=== PATIENT | female | born 1945 | race Caucasian/White ===

== ENCOUNTER 2017-02-21 09:46 | Outpatient (CLI) | payer MEDICARE ==
[2017-02-21 10:10] LABS: Hemoglobin 13.5 g/dL (12.0-16.0); Mean Corpuscular HGB CONC 32.2 g/dL (32.0-36.0); Mean Corpuscular Hemoglobin 30.9 pg (27.0-31.0); Mean Platelet Volume 10.8 fL (7.4-10.4); Platelet Count 231 thou/uL (130-400); RBC Distribution Width 15.7 % (11.5-14.5); Red Blood Cell (RBC) Count 4.35 mill/uL (4.20-5.40); White Blood Cell (WBC) Count 6.3 thou/uL (4.8-10.8)
[2017-02-21 10:37] LABS: ALT (SGPT) 9 U/L (0-55); AST (SGOT) 12 U/L (5-34); Albumin 3.5 g/dL (3.4-4.8); Alkaline Phosphatase 51 U/L (40-150); Anion Gap 12 mmol/L (10-20); BUN (Urea Nitrogen) 7 mg/dL (9.8-20.1); Bilirubin, Total 0.3 mg/dL (0.2-1.2); Calc. Creatinine Clearance 0 mL/min (70-130); Calcium 9.1 mg/dL (7.8-10.44); Carbon Dioxide 22 mmol/L (23-31); Cardiac Risk 2.5 (Less than 4.5); Chloride 105 mmol/L (98-107); Cholesterol 191 mg/dL (< 200 Desired); Estimated GFR-MDRD 75; Globulin 2.7 g/dL (2.4-3.5); Glucose 86 mg/dL (80-115); HDL Cholesterol 76 mg/dL (>60 Neg Risk); LDL Cholesterol, Calculated 103 mg/dL; Potassium 4.4 mmol/L (3.5-5.1); Protein, Total 6.2 g/dL (5.8-8.1); Sodium 135 mmol/L (136-145); Triglycerides 61 mg/dL (Less than 150)
== END 2017-02-21 09:47 | disposition home or self-care (01) ==
LOC: MADLAB 09:46
PROVIDERS: ATTEND Psychiatry & Neurology Psychiatry
DX: E78.2 Mixed hyperlipidemia (principal); F31.75 Bipolar disorder, in partial remission, most recent episode depressed; D64.9 Anemia, unspecified; Z79.899 Other long term (current) drug therapy
CPT/HCPCS: 36415; 80053; 80061; 80164; 85027

== ENCOUNTER 2019-02-03 08:53 | Emergency (ER) | payer MEDICARE ==
[~2019-02-03 08:53] MED LIST: Sodium Chloride 0.9% 1,000 ML BAG ONE
[2019-02-03] MEDS ORDERED: Ondansetron PF 4 MG/2 ML Vial ONE (09:05)
[2019-02-03] MEDS ORDERED: Pantoprazole 40 MG VIAL ONE (09:05)
[2019-02-03 09:28] LABS: INR-International Normal Ratio 1.2; PTT 24.9 SEC (22.9-36.1)
[2019-02-03 09:37] LABS: ALT (SGPT) 155 U/L (8-55); AST (SGOT) 112 U/L (5-34); Albumin 3.2 g/dL (3.4-4.8); Alkaline Phosphatase 107 U/L (40-150); Anion Gap 22 mmol/L (10-20); BUN (Urea Nitrogen) 26 mg/dL (9.8-20.1); Bilirubin, Total 0.3 mg/dL (0.2-1.2); Calc. Creatinine Clearance 0 mL/min (70-130); Calcium 10.4 mg/dL (7.8-10.44); Carbon Dioxide 10 mmol/L (23-31); Chloride 106 mmol/L (98-107); Estimated GFR-MDRD 45; Globulin 2.7 g/dL (2.4-3.5); Glucose 202 mg/dL (83-110); Potassium 4.4 mmol/L (3.5-5.1); Protein, Total 5.9 g/dL (6.0-8.3); Sodium 134 mmol/L (136-145)
[2019-02-03 09:47] LABS: %Basophils 0.7 % (0.0-1.0); %Eosinophils 0.2 % (0.0-10.0); %Lymphocytes 21.3 % (21.0-51.0); %Monocytes 4.4 % (0.0-10.0); %Neutrophils 73.4 % (42.0-75.0); Hemoglobin 11.5 g/dL (12.0-16.0); Mean Corpuscular HGB CONC 32.1 g/dL (32.0-36.0); Mean Corpuscular Hemoglobin 33.6 pg (27.0-31.0); Mean Platelet Volume 8.4 fL (7.4-10.4); Platelet Count 333 thou/uL (130-400); RBC Distribution Width 15.9 % (11.5-14.5); Red Blood Cell (RBC) Count 3.41 mill/uL (4.20-5.40); White Blood Cell (WBC) Count 13.5 thou/uL (4.8-10.8)
[2019-02-03 09:48] LABS: #Basophils 0.1 thou/uL (0.0-0.2); #Monocytes 0.6 thou/uL (0.11-0.59); #Neutrophils 9.9 thou/uL (1.40-6.50); MDiff Complete? YES
[2019-02-03 09:49] LABS: Anisocytosis SLIGHT = 6-15 cells (100X) (0-5/hpf); Macrocytosis SLIGHT = 6-15 cells (100X) (0-5/hpf)
[2019-02-03 09:50] LABS: Platelet Morphology Comment Appears Adequate
--- NOTE | 2019-02-03 10:55 | CT ---
FCT abdomen noncontrast CT pelvis noncontrast: (Urolithiasis protocol) DATE: 02/03/2019 HISTORY: 73-year-old female with nausea, vomiting, diarrhea, and abdominal pain. COMPARISON: 02/16/2016 CT with and without contrast TECHNIQUE: IV injection of iodinated contrast media: None Oral contrast media: None FINDINGS: Other than for urolithiasis, the lack of IV and oral contrast limits the evaluation. Again noted is the calculus at a left renal lower pole calyx, currently measuring 9 x 6 x 7 mm. Previ ously demonstrated tiny calculus at left renal upper pole is no longer present. No calculi in right k [place]ney. No hydronephrosis. No calculus in the urinary bladder or ureters. Normal, thin cowart of the ur inary bladder. Fundoplication at the esophagogastric junction. No hepatosplenomegaly. No abdominal ao rtic aneurysm. No gross pancreatic abnormality. No small bowel dilation. No signs of colonic divertic ulitis. No ascites or pneumoperitoneum. Distended gallbladder without pericholecystic edema. Benign c oarse calcifications in spleen. Unchanged. IMPRESSION: 1) no acute findings. 2) urolithiasis consisting of a single 9 mm left renal calculus. 3) status post fundoplication
[2019-02-03] MEDS ORDERED: Prochlorperazine 10 MG/2 ML VIAL ONE (11:35)
== END 2019-02-03 13:05 | disposition short-term general hospital (02) ==
LOC: MADERS 08:53
DX: K92.2 Gastrointestinal hemorrhage, unspecified (principal); K75.9 Inflammatory liver disease, unspecified; I95.9 Hypotension, unspecified; N18.1 Chronic kidney disease, stage 1; F31.9 Bipolar disorder, unspecified; Z79.899 Other long term (current) drug therapy
CPT/HCPCS: 74176; 80053; 82274; 83605; 84484; 85025; 85610; 85730; 86850; 86900; 86901; 93005; 96361; 96374; 96375; 99292; C9113; J0780; J2405; J7050

== ENCOUNTER 2024-09-06 14:04 | Emergency (ER) | payer MEDICARE ==
[~2024-09-06 14:04] MED LIST changes: +Iopamidol 370 76% 100 ML VIAL ONE; -Sodium Chloride 0.9% 1,000 ML BAG ONE; +Sodium Chloride 0.9% 100 ML BAG ONE
[2024-09-06 15:11] LABS: ALT (SGPT) 17 U/L (8-55); AST (SGOT) 25 U/L (5-34); Albumin 1.9 g/dL (3.4-4.8); Alkaline Phosphatase 180 U/L (40-110); Anion Gap 14 mmol/L (10-20); BUN (Urea Nitrogen) 40 mg/dL (9.8-20.1); Bilirubin, Total 0.5 mg/dL (0.2-1.2); Calc. Creatinine Clearance 0 mL/min (70-130); Calcium 8.9 mg/dL (7.8-10.44); Carbon Dioxide 26 mmol/L (23-31); Chloride 100 mmol/L (98-107); Estimated GFR 45; Globulin 4.3 g/dL (2.4-3.5); Glucose 105 mg/dL (83-110); Lipase 30 U/L (8-78); Potassium 4.4 mmol/L (3.5-5.1); Protein, Total 6.2 g/dL (5.8-8.1); Sodium 136 mmol/L (136-145)
[2024-09-06 15:14] LABS: Base Excess-Venous 4.7 mmol/L (-2.0 to 3.0); CO2 Tension (PvCO2) 60.4 mmHg (42.0-51.0); Calcium, Ionized 1.23 mmol/L (1.15-1.33); Chloride 100 mmol/L (98-107); Hemoglobin - Calc 18.3 g/dL (12.0-16.0); Potassium 4.6 mmol/L (3.5-5.1); Sodium 139 mmol/L (138-145); T. Carbon Dioxide 34.8 mmol/L (22.0-28.0); vO2 Saturation-calc 98.9 % (60.0-85.0)
[2024-09-06 15:16] LABS: Anisocytosis SLIGHT = 6-15 cells (100X) (0-5/hpf); Band 17 % (5-11); Eosinophils 2 % (0-10); Hematocrit 48.9 % (36.0-47.0); Hemoglobin 14.5 g/dL (12.0-16.0); Hypochromia SLIGHT = 6-15 cells (100X) (0-5/hpf); Lymphocytes 8 % (21-51); MDiff Complete? YES; Macrocytosis SLIGHT = 6-15 cells (100X) (0-5/hpf); Mean Corpuscular HGB CONC 29.7 g/dL (32.0-36.0); Mean Corpuscular Hemoglobin 30.3 pg (27.0-31.0); Mean Platelet Volume 9.2 fL (7.4-10.4); Monocytes 9 % (0-10); Neutrophil 62 % (42-75); Platelet Adequacy Comment Appears Adequate; Platelet Count 195 10x3/uL (130-400); RBC Distribution Width 17.5 % (11.5-14.5); Red Blood Cell (RBC) Count 4.79 mill/uL (4.20-5.40); White Blood Cell (WBC) Count 12.5 10x3/uL (4.8-10.8)
[2024-09-06 15:18] LABS: Critical Call Chem Troponin I NUR.OREST1@1518
[2024-09-06 15:19] LABS: Troponin I 0.697 ng/mL (< 0.028)
[2024-09-06] MEDS ORDERED: cefTRIAXone (ROCEPHIN) 1 GM VIAL ONE (16:32)
[2024-09-06] MEDS ORDERED: fentaNYL 50 mcg/mL 1 mL Vial ONE (17:03)
[2024-09-06] MEDS ORDERED: Sodium Chloride 0.9% 1,000 ML ONE (17:03)
[2024-09-06 17:04] LABS: Prothrombin Time 13.4 sec (12.0-14.7)
[2024-09-06 17:05] LABS: PTT 31.9 sec (22.9-36.1)
== END 2024-09-06 17:40 | disposition short-term general hospital (02) ==
LOC: MADERS 14:04
DX: I26.99 Other pulmonary embolism without acute cor pulmonale (principal); Z55.6 Problems related to health literacy
CPT/HCPCS: 71045; 71275; 74177; 80053; 82330; 82435; 82803; 83605; 83690; 83880; 84132; 84295; 84484; 85014; 85025; 85610; 85730; 87040; 87077; 87149 ×2; 87186; J0696; J3010; J7030; Q9967; 36415; 96361; 96374; 96375

== ENCOUNTER 2024-09-18 10:39 | Inpatient (IN) | payer MEDICARE ==
[2024-09-18 14:14] VITALS: BMI 35.9
[2024-09-18] MEDS: cefTRIAXone\\ROCEPHIN 2 GM in Sodium Chloride 0.9% 100 ML IVPB SCH (19:00)
[2024-09-18] MEDS: Brimonidine Tartrate 0.2% Ophth Soln 5 ml Bottle EA EYE SCH (20:12)
[2024-09-18] MEDS: clonazePAM 0.5 MG TAB PO SCH (20:12)
[2024-09-18] MEDS: Latanoprost 0.005% Ophth Soln 2.5 ml Bottle EA EYE SCH (20:12)
[2024-09-18] MEDS: HYDROcodone/Acetaminophen 10/325 mg Tablet PO PRN (20:13)
[2024-09-18] MEDS: QUEtiapine 100 MG TAB PO SCH (20:13)
[2024-09-18] MEDS: Apixaban 5 MG TAB PO SCH (20:13)
[2024-09-18] MEDS ORDERED: Transdermal Patch Removal TOP SCH (23:00)
[2024-09-19] MEDS: Ezetimibe 10 MG TAB PO SCH (08:26)
[2024-09-19] MEDS: Cholecalciferol 1,000 UNITS (25 MCG) TAB PO SCH (08:26)
[2024-09-19] MEDS: Divalproex Sodium 250 MG (DR) TAB PO SCH (08:26)
[2024-09-19] MEDS: Venlafaxine HCl XR 150 MG CAP PO SCH (08:26)
[2024-09-19] MEDS: Pantoprazole DR 40 MG TAB PO SCH (08:26)
[2024-09-19] MEDS: Lidocaine 4% Patch TD SCH (08:27)
[2024-09-19] MEDS: Timolol 0.5% Ophth Soln 5 ml Bottle EA EYE SCH (08:27)
[2024-09-19] MEDS ORDERED: Lidocaine 4% Patch TD SCH (11:00)
[2024-09-19] MEDS ORDERED: cefTRIAXone (ROCEPHIN) 2 GM VIAL IVPB SCH (16:00)
[2024-09-19 20:18] VITALS: BMI 35.9
[2024-09-19] MEDS: Acetaminophen 325 MG TAB PO PRN (20:33)
[2024-09-19] MEDS: LIDOCAINE Patch Removal TOP SCH (20:35)
[2024-09-19] MEDS ORDERED: LIDOCAINE Patch Removal TOP SCH (23:00)
[2024-09-20] MEDS: Lantiseptic Ointment 130 GM JAR TOP PRN (13:54)
[2024-09-20] MEDS: Lantiseptic Ointment 130 GM JAR TOP SCH (21:39)
[2024-09-22] MEDS: FLU (Fluad Triv) TS24-25 (65UP)/MF59C/PF 45 MCG/0.5 ML Syringe IM ONE (18:54)
[2024-09-23 05:22] LABS: Anion Gap 13 mmol/L (10-20); BUN (Urea Nitrogen) 11 mg/dL (9.8-20.1); Calc. Creatinine Clearance 102 mL/min (70-130); Calcium 9.3 mg/dL (7.8-10.44); Carbon Dioxide 34 mmol/L (23-31); Chloride 98 mmol/L (98-107); Estimated GFR 89; Glucose 75 mg/dL (83-110); Potassium 4.5 mmol/L (3.5-5.1); Sodium 140 mmol/L (136-145)
[2024-09-23 05:23] LABS: Hematocrit 30.8 % (36.0-47.0); Hemoglobin 9.1 g/dL (12.0-16.0); Platelet Count 227 10x3/uL (130-400)
[2024-09-23] MEDS: clonazePAM 0.5 MG TAB PO SCH (20:27)
[2024-09-23] MEDS: QUEtiapine 100 MG TAB PO SCH (20:28)
[2024-09-24] MEDS: Polyethylene Glycol 3350 17 GM Packet PO PRN (09:11)
[2024-09-24] MEDS ORDERED: QUEtiapine 100 MG TAB ONE (20:12)
[2024-09-25] MEDS ORDERED: Lidocaine 4% Patch ONE ×2 (08:11→08:34)
[2024-09-25] MEDS ORDERED: clonazePAM 0.5 MG TAB ONE ×3 (08:11→20:54)
[2024-09-25] MEDS ORDERED: Divalproex Sodium 250 MG (DR) TAB ONE ×2 (08:11→08:34)
[2024-09-25] MEDS ORDERED: Pantoprazole DR 40 MG TAB ONE ×2 (08:11→08:34)
[2024-09-25] MEDS ORDERED: Venlafaxine HCl XR 150 MG CAP ONE ×2 (08:11→08:34)
[2024-09-25] MEDS ORDERED: Ezetimibe 10 MG TAB ONE ×2 (08:11→08:34)
[2024-09-25] MEDS ORDERED: Cholecalciferol 1,000 UNITS (25 MCG) TAB ONE ×2 (08:11→08:34)
[2024-09-25] MEDS ORDERED: Apixaban 5 MG TAB ONE ×3 (08:11→20:54)
[2024-09-25] MEDS ORDERED: HYDROcodone/Acetaminophen 10/325 mg Tablet ONE (12:11)
[2024-09-25] MEDS ORDERED: QUEtiapine 100 MG TAB ONE (20:54)
[2024-09-26] MEDS ORDERED: HYDROcodone/Acetaminophen 10/325 mg Tablet ONE ×3 (04:05→20:02)
[2024-09-26] MEDS ORDERED: Ezetimibe 10 MG TAB ONE (08:11)
[2024-09-26] MEDS ORDERED: clonazePAM 0.5 MG TAB ONE (08:11)
[2024-09-26] MEDS ORDERED: Venlafaxine HCl XR 150 MG CAP ONE (08:11)
[2024-09-26] MEDS ORDERED: Pantoprazole DR 40 MG TAB ONE (08:11)
[2024-09-26] MEDS ORDERED: Divalproex Sodium 250 MG (DR) TAB ONE (08:11)
[2024-09-26] MEDS ORDERED: Polyethylene Glycol 3350 17 GM Packet ONE (08:11)
[2024-09-26] MEDS ORDERED: Cholecalciferol 1,000 UNITS (25 MCG) TAB ONE (08:11)
[2024-09-26] MEDS ORDERED: Apixaban 5 MG TAB ONE ×2 (08:11→20:02)
[2024-09-28] MEDS ORDERED: HYDROcodone/Acetaminophen 10/325 mg Tablet PO PRN (21:12)
[2024-09-29] MEDS: HYDROcodone/Acetaminophen 5/325 mg Tablet PO PRN (01:14)
[2024-09-29] MEDS: HYDROcodone/Acetaminophen 10/325 mg Tablet PO PRN (08:25)
[2024-10-01 05:15] LABS: INR-International Normal Ratio 1.3; Prothrombin Time 16.3 sec (12.0-14.7)
[2024-10-01 05:16] LABS: #Basophils 0.1 thou/uL (0.0-0.2); #Eosinophils 0.3 thou/uL (0.0-0.7); #Lymphocytes 1.5 thou/uL (1.20-3.40); #Monocytes 0.8 thou/uL (0.11-0.59); #Neutrophils 3.5 thou/uL (1.40-6.50); %Basophils 1.2 % (0.0-1.0); %Eosinophils 5.2 % (0.0-10.0); %Lymphocytes 24.6 % (21.0-51.0); %Monocytes 12.7 % (0.0-10.0); %Neutrophils 56.3 % (42.0-75.0); Anion Gap 9 mmol/L (10-20); Anisocytosis SLIGHT = 6-15 cells (100X) (0-5/hpf); BUN (Urea Nitrogen) 10 mg/dL (9.8-20.1); Calc. Creatinine Clearance 99 mL/min (70-130); Calcium 9.2 mg/dL (7.8-10.44); Carbon Dioxide 31 mmol/L (23-31); Chloride 101 mmol/L (98-107); Eosinophils 5 % (0-10); Estimated GFR 88; Glucose 90 mg/dL (83-110); Hematocrit 30.1 % (36.0-47.0); Hemoglobin 9.2 g/dL (12.0-16.0); Hypochromia SLIGHT = 6-15 cells (100X) (0-5/hpf); Lymphocytes 25 % (21-51); MDiff Complete? YES; Mean Corpuscular HGB CONC 30.7 g/dL (32.0-36.0); Mean Corpuscular Hemoglobin 31.8 pg (27.0-31.0); Mean Corpuscular Volume 103.5 fl (78.0-98.0); Mean Platelet Volume 10.4 fL (7.4-10.4); Microcytosis SLIGHT = 6-15 cells (100X) (0-5/hpf); Monocytes 12 % (0-10); Neutrophil 57 % (42-75); PTT 32.1 sec (22.9-36.1); Platelet Count 177 10x3/uL (130-400); Potassium 4.4 mmol/L (3.5-5.1); RBC Distribution Width 18.6 % (11.5-14.5); Red Blood Cell (RBC) Count 2.91 mill/uL (4.20-5.40); Sodium 137 mmol/L (136-145); White Blood Cell (WBC) Count 6.3 10x3/uL (4.8-10.8)
[2024-10-01] MEDS: Fluconazole 100 MG TAB PO SCH (20:59)
[2024-10-03] MEDS: Linezolid 600 MG TAB PO SCH (21:48)
[2024-10-04] MEDS: Calcium Carbonate 500 MG TAB PO PRN (02:58)
[2024-10-04 07:14] VITALS: BP 102/68; TEMP 98.3
== END 2024-10-04 10:25 | disposition home health service (06) | DRG 947 ==
LOC: MADMS 13:01
PROVIDERS: ADMIT Family Medicine; ATTEND Family Medicine
DX: R53.81 Other malaise (principal); I26.99 Other pulmonary embolism without acute cor pulmonale; J96.01 Acute respiratory failure with hypoxia; I82.401 Acute embolism and thrombosis of unspecified deep veins of right lower extremity; N20.1 Calculus of ureter; N12 Tubulo-interstitial nephritis, not specified as acute or chronic; R78.81 Bacteremia; E78.5 Hyperlipidemia, unspecified; F31.9 Bipolar disorder, unspecified; H40.9 Unspecified glaucoma; E88.09 Other disorders of plasma-protein metabolism, not elsewhere classified; Z66 Do not resuscitate; R26.89 Other abnormalities of gait and mobility; Z87.11 Personal history of peptic ulcer disease; Z88.0 Allergy status to penicillin; Z79.899 Other long term (current) drug therapy
CPT/HCPCS: 36415; 80048; 85014; 85018; 85025; 85049; 85610; 85730; 87077; 87086; 87186; J0696

== ENCOUNTER 2024-11-01 12:09 | Emergency (ER) | payer MEDICARE ==
[2024-11-01 12:58] LABS: Hematocrit 32.4 % (36.0-47.0); Hemoglobin 10.3 g/dL (12.0-16.0); Mean Corpuscular HGB CONC 31.6 g/dL (32.0-36.0); Mean Corpuscular Hemoglobin 32.3 pg (27.0-31.0); Mean Platelet Volume 8.1 fL (7.4-10.4); Platelet Count 504 10x3/uL (130-400); RBC Distribution Width 17.5 % (11.5-14.5); Red Blood Cell (RBC) Count 3.18 mill/uL (4.20-5.40); White Blood Cell (WBC) Count 9.2 10x3/uL (4.8-10.8)
[2024-11-01 13:07] LABS: Eosinophils 1 % (0-10); Lymphocytes 14 % (21-51); MDiff Complete? YES; Manual Diff?? YES; Monocytes 11 % (0-10); Neutrophil 74 % (42-75)
[2024-11-01 13:08] LABS: ALT (SGPT) 17 U/L (8-55); AST (SGOT) 29 U/L (5-34); Albumin 2.3 g/dL (3.4-4.8); Alkaline Phosphatase 131 U/L (40-110); Anion Gap 12 mmol/L (10-20); Anisocytosis MODERATE=16-30 cells (100X) (0-5/hpf); BUN (Urea Nitrogen) 14 mg/dL (9.8-20.1); Bilirubin, Total 0.5 mg/dL (0.2-1.2); Calc. Creatinine Clearance 0 mL/min (70-130); Calcium 9.1 mg/dL (7.8-10.44); Carbon Dioxide 25 mmol/L (23-31); Chloride 103 mmol/L (98-107); Estimated GFR 80; Globulin 4.6 g/dL (2.4-3.5); Glucose 118 mg/dL (83-110); Hypochromia SLIGHT = 6-15 cells (100X) (0-5/hpf); Macrocytosis MODERATE=16-30 cells (100X) (0-5/hpf); Platelet Adequacy Comment Appears Increased; Poikilocytosis SLIGHT = 6-15 cells (100X) (0-5/hpf); Potassium 4.8 mmol/L (3.5-5.1); Protein, Total 6.9 g/dL (5.8-8.1); Sodium 135 mmol/L (136-145); Target Cells SLIGHT = 2-5 cells (100X) (0-1/hpf)
[2024-11-01] MEDS ORDERED: Acetaminophen 325 MG TAB ONE (13:15)
[2024-11-01] MEDS ORDERED: Ketorolac Tromethamine 30 MG (1 mL) VIAL ONE (13:15)
== END 2024-11-01 14:15 | disposition home or self-care (01) ==
LOC: MADERS 12:09
DX: M54.9 Dorsalgia, unspecified (principal); M40.209 Unspecified kyphosis, site unspecified
CPT/HCPCS: 74176; 80053; 85025; 96372; 99284; J1885

== ENCOUNTER 2024-11-12 20:41 | Inpatient (IN) | payer MEDICARE ==
[2024-11-12] MEDS ORDERED: Docusate 100 MG CAP PO PRN (22:07)
[2024-11-12] MEDS ORDERED: Polyethylene Glycol 3350 17 GM Packet PO PRN (22:07)
[2024-11-12] MEDS ORDERED: Senokot S 8.6-50 MG TAB PO PRN (22:09)
[2024-11-12] MEDS ORDERED: Bisacodyl 5 MG TAB PO PRN (22:09)
[2024-11-12] MEDS ORDERED: Loperamide HCl 2 MG CAP PO PRN ×2 (22:09)
[2024-11-12] MEDS ORDERED: Bisacodyl 10 MG SUPP PR PRN (22:09)
[2024-11-12 22:19] VITALS: BMI 34.4
[2024-11-12] MEDS: traMADol HCl 50 MG TAB PO PRN (22:34)
[2024-11-13] MEDS: Acetaminophen 325 MG TAB PO PRN (00:23)
[2024-11-13] MEDS: Divalproex Sodium 250 MG DR.TAB PO SCH ×2 (00:25→20:08)
[2024-11-13] MEDS: clonazePAM 0.5 MG TAB PO SCH ×2 (00:26→08:12)
[2024-11-13] MEDS: QUEtiapine 100 MG TAB PO SCH ×2 (00:27→20:08)
[2024-11-13] MEDS: Brimonidine Tartrate 0.2% Ophth Soln 5 ml Bottle EA EYE SCH (08:08)
[2024-11-13] MEDS: Pantoprazole 40 MG DR.TAB PO SCH (08:10)
[2024-11-13] MEDS: Timolol 0.5% Ophth Soln 5 ml Bottle EA EYE SCH (08:10)
[2024-11-13] MEDS: Apixaban 5 MG TAB PO SCH (08:10)
[2024-11-13] MEDS: Ondansetron ODT 4 MG TAB PO PRN (09:31)
[2024-11-13 14:53] VITALS: BMI 34.4
[2024-11-13] MEDS: Cholecalciferol 1,000 UNITS (25 MCG) TAB PO SCH (20:06)
[2024-11-13] MEDS: Ezetimibe 10 MG TAB PO SCH (20:06)
[2024-11-13] MEDS: Venlafaxine HCl XR 150 MG CAP PO SCH (20:07)
[2024-11-13] MEDS: Latanoprost 0.005% Ophth Soln 2.5 ml Bottle EA EYE SCH (20:15)
[2024-11-14] MEDS: FLU (Fluad Triv) TS24-25 (65UP)/MF59C/PF 45 MCG/0.5 ML Syringe IM ONE (07:10)
[2024-11-14] MEDS: clonazePAM 0.5 MG TAB PO SCH (08:50)
[2024-11-16 05:07] LABS: Hematocrit 33.6 % (36.0-47.0); Hemoglobin 10.2 g/dL (12.0-16.0); Platelet Count 246 10x3/uL (130-400)
[2024-11-17] MEDS: HYDROcodone/Acetaminophen 5/325 mg Tablet PO PRN (10:38)
[2024-11-17 10:52] LABS: #Basophils 0.1 thou/uL (0.0-0.2); #Eosinophils 0.1 thou/uL (0.0-0.7); #Lymphocytes 1.8 thou/uL (1.20-3.40); #Monocytes 1.2 thou/uL (0.11-0.59); #Neutrophils 7.7 thou/uL (1.40-6.50); %Basophils 1.3 % (0.0-1.0); %Eosinophils 0.7 % (0.0-10.0); %Lymphocytes 16.4 % (21.0-51.0); %Neutrophils 70.6 % (42.0-75.0); Hematocrit 34.1 % (36.0-47.0); Hemoglobin 10.5 g/dL (12.0-16.0); Mean Corpuscular HGB CONC 30.7 g/dL (32.0-36.0); Mean Corpuscular Hemoglobin 32.2 pg (27.0-31.0); Mean Corpuscular Volume 104.9 fl (78.0-98.0); Mean Platelet Volume 8.6 fL (7.4-10.4); Platelet Count 273 10x3/uL (130-400); Red Blood Cell (RBC) Count 3.25 mill/uL (4.20-5.40); White Blood Cell (WBC) Count 10.8 10x3/uL (4.8-10.8)
[2024-11-17 11:05] LABS: ALT (SGPT) 11 U/L (8-55); AST (SGOT) 13 U/L (5-34); Albumin 2.3 g/dL (3.4-4.8); Alkaline Phosphatase 76 U/L (40-110); Anion Gap 16 mmol/L (10-20); BUN (Urea Nitrogen) 9 mg/dL (9.8-20.1); Bilirubin, Total 0.3 mg/dL (0.2-1.2); Calc. Creatinine Clearance 88 mL/min (70-130); Calcium 9.2 mg/dL (7.8-10.44); Carbon Dioxide 26 mmol/L (23-31); Chloride 97 mmol/L (98-107); Estimated GFR 80; Globulin 3.9 g/dL (2.4-3.5); Glucose 109 mg/dL (83-110); Potassium 3.8 mmol/L (3.5-5.1); Protein, Total 6.2 g/dL (5.8-8.1); Sodium 135 mmol/L (136-145)
[2024-11-17] MEDS: Lorazepam 0.5 MG TAB PO SCH (20:53)
[2024-11-18 07:54] VITALS: BP 96/65; TEMP 98.8
[2024-11-18 13:11] LABS: Hematocrit 35.1 % (36.0-47.0); Hemoglobin 10.8 g/dL (12.0-16.0); Mean Corpuscular HGB CONC 30.7 g/dL (32.0-36.0); Mean Corpuscular Hemoglobin 32.1 pg (27.0-31.0); Mean Corpuscular Volume 104.3 fl (78.0-98.0); Mean Platelet Volume 8.5 fL (7.4-10.4); Platelet Count 298 10x3/uL (130-400); RBC Distribution Width 17.6 % (11.5-14.5); Red Blood Cell (RBC) Count 3.37 mill/uL (4.20-5.40); White Blood Cell (WBC) Count 12.3 10x3/uL (4.8-10.8)
[2024-11-18 13:13] LABS: ALT (SGPT) 11 U/L (8-55); AST (SGOT) 14 U/L (5-34); Albumin 2.5 g/dL (3.4-4.8); Alkaline Phosphatase 83 U/L (40-110); Anion Gap 15 mmol/L (10-20); BUN (Urea Nitrogen) 10 mg/dL (9.8-20.1); Bilirubin, Total 0.3 mg/dL (0.2-1.2); Calc. Creatinine Clearance 84 mL/min (70-130); Calcium 9.5 mg/dL (7.8-10.44); Carbon Dioxide 28 mmol/L (23-31); Chloride 95 mmol/L (98-107); Estimated GFR 77; Globulin 4.3 g/dL (2.4-3.5); Glucose 110 mg/dL (83-110); Lipase 29 U/L (8-78); Potassium 3.5 mmol/L (3.5-5.1); Protein, Total 6.8 g/dL (5.8-8.1); Sodium 134 mmol/L (136-145)
[2024-11-18 13:57] LABS: MDiff Complete? YES; Manual Diff?? YES
[2024-11-18 13:58] LABS: Anisocytosis SLIGHT = 6-15 cells (100X) (0-5/hpf); Band 1 % (5-11); Eosinophils 2 % (0-10); Lymphocytes 11 % (21-51); Macrocytosis SLIGHT = 6-15 cells (100X) (0-5/hpf); Monocytes 9 % (0-10); Neutrophil 77 % (42-75); Platelet Adequacy Comment Appears Adequate
== END 2024-11-18 19:00 | disposition short-term general hospital (02) | DRG 947 ==
LOC: MADMS 20:41
PROVIDERS: ADMIT Family Medicine; ATTEND Family Medicine
DX: R53.81 Other malaise (principal); I26.99 Other pulmonary embolism without acute cor pulmonale; I50.32 Chronic diastolic (congestive) heart failure; I50.30 Unspecified diastolic (congestive) heart failure; M48.061 Spinal stenosis, lumbar region without neurogenic claudication; F31.9 Bipolar disorder, unspecified; E78.5 Hyperlipidemia, unspecified; Z79.899 Other long term (current) drug therapy; Z90.710 Acquired absence of both cervix and uterus; Z90.49 Acquired absence of other specified parts of digestive tract; Z98.890 Other specified postprocedural states; Z88.8 Allergy status to other drugs, medicaments and biological substances; Z88.0 Allergy status to penicillin; Z79.01 Long term (current) use of anticoagulants; M46.44 Discitis, unspecified, thoracic region
CPT/HCPCS: 36415; 72072; 72100; 72128; 72131; 80053; 83690; 85014; 85018; 85025; 85049; 86140; Q0162